=== PATIENT | male | born 1955 | race Caucasian/White ===

== ENCOUNTER → 2024-03-27 09:45 | Outpatient (REF) | payer OTHER, SELFPAY | LOC: MRI 3T 09:45 | PROVIDERS: ATTENDING PHYSICIAN Family Medicine | DX: K86.9 Disease of pancreas, unspecified (principal); N28.1 Cyst of kidney, acquired; K76.89 Other specified diseases of liver | CPT/HCPCS: 74183; A9575 ==

== ENCOUNTER → 2024-04-13 12:57 | Outpatient (REF) | payer OTHER, SELFPAY | LOC: HWRCS 12:57 | PROVIDERS: ATTENDING PHYSICIAN Internal Medicine Cardiovascular Disease; FAMILY PHYSICIAN Family Medicine | DX: I34.1 Nonrheumatic mitral (valve) prolapse (principal) | CPT/HCPCS: 93306 ==

== ENCOUNTER → 2024-10-06 11:26 | Outpatient (REF) | payer BC, SELFPAY | LOC: HWRAD 11:26 | PROVIDERS: ATTENDING PHYSICIAN Family Medicine | DX: J40 Bronchitis, not specified as acute or chronic (principal); M25.551 Pain in right hip | CPT/HCPCS: 71046; 73522 ==

== ENCOUNTER 2024-11-23 06:20 | Day surgery (SDC) | payer BC, SELFPAY ==
[2024-11-07 14:03] VITALS: BMI 26.8
--- NOTE | 2024-11-14 15:43 | PTCARENOTE ---
Abnormal EKG on 09/06/25. Dr. Larose aware. No interventions needed.
[2024-11-23] VITALS (8 sets, daily range): BP systolic 114–136; BP diastolic 72–81
[2024-11-23] MEDS: TYLENOL 1000 MG PO (07:37)
[2024-11-23] MEDS: NORMOSOL-R/PLASMALYTE-A 1000 IV (07:51)
--- NOTE | 2024-11-23 08:06 | W.SUR.PREOP ---
Pre-Operative Surgical Note
-
I have examined this patient prior to the performance of the scheduled procedure.
The patient's condition is unchanged from the time of the current History and
Physical and the patient is able to undergo the scheduled procedure.
--- NOTE | 2024-11-23 08:06 | HP.FOC2 ---
Focused History & Physical
Chief Complaint
HPI:
Chief Complaint: Left inguinal hernia
HPI / Indication for Planned Procedure: This is a 69-year-old male with bilateral inguinal hernias, will plan for robotic repair.
Relevant Past Medical History: Negative
Relevant Social History: Negative
Relevant Family History: Negative
Relevant Past Surgical History: Negative
Review of Systems
Review of Pertinent Systems: All Systems Negative
Medication
See Medication form for detailed medications: Yes
Medication List (including Herbals & OTC):
atorvastatin 40 mg tablet 40 mg PO DAILY 11/16/24
coQ10 (ubiquinol) 200 mg capsule 200 mg PO DAILY 11/16/24
valsartan 80 mg tablet 80 mg PO DAILY 11/16/24
Medications Reviewed: Yes
Allergies and Reactions
Patient has Allergies: Yes
Noted Allergies and Reactions:
Allergy/AdvReac Type Severity Reaction Status Date / Time
Hayfever Allergy Stuffy Uncoded 11/23/24 07:32
nose,
itchy eyes
Pertinent Physical Exam
All Other Systems: Negative
Head/Neck: Normal
Diagnosis / Assessment
This is a 69-year-old male with bilateral inguinal hernias, will plan for robotic repair.
Plan / Procedure
This is a 69-year-old male with bilateral inguinal hernias, will plan for robotic repair.
Anesthesia/Sedation to be done by Anesthesia Provider: Yes
--- NOTE | 2024-11-23 10:29 | W.IMMPOSTOP ---
Surgical Immed Post Op Note
-
Primary Surgeon: Mina Nihcolas MD
Assisting Surgeon: None
Pre-op Diagnosis: Bilateral inguinal hernias
Post-op Diagnosis: Left inguinal hernia
Procedure Performed: Robotic left inguinal hernia repair with mesh
Anesthesia Type: General
Specimen / Cultures: None
Estimated Blood Loss: 3 cc
Complications: None
Operative Findings: Large left indirect inguinal hernia. Small direct component, no femoral defect. medium cord lipoma resected. No defect noted on the contralateral side. Radiographic lipoma noted preoperatively but as this was asymptomatic we
elected not to perform a dissection on the side.
--- NOTE | 2024-11-23 10:32 | OR.RPT ---
Operative Report
Operative Report
Patient Name: Regan Ogden
: 1955
Date of Operation: 11/23/2024
Preoperative Diagnosis: Bilateral inguinal hernias
Postoperative Diagnosis: Left inguinal hernia
Procedure(s):
Robotic left inguinal Hernia Repair with mesh, (EMMANUELLE approach)
Surgeon(s):
Dr. Nicholas
Events And Promotions Assistant(s):
CRISTIAN James
Anesthesia: General
Estimated Blood Loss: 3 cc
Urine Output: None
Drains/Lines/Implants: Large 3D Max Bard mid weight uncoated polypropylene mesh
Specimens: None
Indication for surgery: The patient has a history of groin pain and noted on exam to have a Left inguinal Hernia. He had recent radiographic imaging which noted bilateral fat-containing inguinal hernias. Following review of therapeutic options
they have elected to undergo a minimally invasive repair.
Operative Findings: Large left indirect inguinal hernia. Small direct component, no femoral defect. medium cord lipoma resected. No defect noted on the contralateral side. Radiographic lipoma noted preoperatively but as this was asymptomatic we
elected not to perform a dissection on the side. The defect was reinforced after achieving a critical view of the MPO with an extra-large Bard 3D max mid weight uncoated polypropylene mesh.
Details of the operation:
The patient was brought to the Operating Room and placed in the supine position with the arms tucked. IV antibiotics were infused and Venodyne stockings placed. Following uneventful induction of general endotracheal anesthesia, an orogastric tube
was placed. The abdomen was prepped and draped in the usual sterile fashion. The abdomen was entered using a Veress technique which required 1 pass, pneumoperitoneum to 15 mmHg was obtained without difficulty. An 8mm trochar was passed through the
abdominal wall roughly 20 cm cephalad to the inguinal canal. We then confirmed that no inadvertent injury was made while passing the trocar or Veress needle. We then placed two additional 8 mm ports in the left upper and right upper quadrants. We
then docked the robot with a Prograsper in the left hand port and monopolar scissors in the right. An obvious defect was noted on the left side with sigmoid colon tethered through the defect. No defect was noted on the right. We began by taking
down the attachments of the sigmoid colon to the peritoneum as this was not a true sliding hernia. Also, considering that he had no defect on the right, but simple cord lipoma that was seen radiographically we elected not to do a bilateral repair
but left repair only. We then began by creating a flap at the level of the ASIS laterally working our way medially to the medial umbilical fold. Staying onto the peritoneum we were able to circumferentially dissect around the hernia sac and and
peel it off of the underlying spermatic cord and testicular vessels, taking care to preserve them. Medially we identified the midline pubis as well as William's ligament and ensured to dissect 2 cm below the pubic rim over the bladder. After
exposure of the entire myopectineal orifice we identified and reduced: A medium sized indirect inguinal hernia, a small direct inguinal hernia, no femoral hernia, and a small cord lipoma, which was removed
We then fixated an extra large 3D max mesh with a 2-0 Vicryl stitch at coopers medially and superior laterally. The flap was then closed with a running 2-0 barbed monocryl suture ensuring that the tail was cut flush with the medial fat pad so that
no barbs were exposed. During the closure of the flap an Angiocath was inserted and 20 cc of quarter percent Marcaine was instilled. The area in the flap cavity was then evacuated of air confirming that the mesh was flush and there were no folds.
All needles and instruments were then removed and the robot was undocked. The abdomen was then desufflated, and pneumoperitoneum evacuated. All skin sites were then closed with 4-0 Monocryl followed by Dermabond. Counts were correct and overall,
the patient tolerated the procedure well and was taken to the Recovery Room postoperatively in stable condition.
I was the attending physician and performed the procedure with assistance of the PA above. The assistance of CRISTIAN James was required due to the complexity of the procedure. During the procedure Zuleyma assisted with port placement, instrument
and needle exchanges, and closure of the wound. I was present for all portions of the case, excluding skin closure.
Mina Nicholas MD
== END 2024-11-23 12:21 | disposition home or self-care (01) ==
LOC: SDS 06:20
PROVIDERS: ATTENDING PHYSICIAN Surgery; FAMILY PHYSICIAN Family Medicine
DX: K40.90 Unilateral inguinal hernia, without obstruction or gangrene, not specified as recurrent (principal); R10.30 Lower abdominal pain, unspecified
CPT/HCPCS: 49650; 36415; 93005; C1781

== ENCOUNTER → 2024-11-24 18:19 | Outpatient (REF) | payer BC, SELFPAY | LOC: MRI 3T 18:19 | PROVIDERS: ATTENDING PHYSICIAN Family Medicine | DX: I71.43 Infrarenal abdominal aortic aneurysm, without rupture (principal); N28.1 Cyst of kidney, acquired; K86.89 Other specified diseases of pancreas | CPT/HCPCS: 74183; A9575 ==

== ENCOUNTER → 2025-04-23 09:12 | Outpatient (REF) | payer OTHER, SELFPAY | LOC: RCS 09:12 | PROVIDERS: ATTENDING PHYSICIAN Internal Medicine Cardiovascular Disease; FAMILY PHYSICIAN Family Medicine | DX: I34.0 Nonrheumatic mitral (valve) insufficiency (principal); I34.1 Nonrheumatic mitral (valve) prolapse | CPT/HCPCS: 93306 ==

== ENCOUNTER 2025-07-24 06:09 | Day surgery (SDC) | payer OTHER, SELFPAY ==
[2025-07-24 09:30] VITALS: BMI 27.2
[2025-07-24 09:31] VITALS: BP 115/80
[2025-07-24 11:45] VITALS: BP 126/74
[2025-07-24 12:00] VITALS: BP 116/75
[2025-07-24 12:15] VITALS: BP 125/71
== END 2025-07-24 12:40 | disposition home or self-care (01) ==
LOC: SDS 06:09
PROVIDERS: ATTENDING PHYSICIAN Internal Medicine Gastroenterology
DX: K86.2 Cyst of pancreas (principal); D13.2 Benign neoplasm of duodenum; K29.80 Duodenitis without bleeding; K31.89 Other diseases of stomach and duodenum; R93.3 Abnormal findings on diagnostic imaging of other parts of digestive tract
CPT/HCPCS: 43242; 88173; 88305; 88342